=== PATIENT | female | born 1985 | race Caucasian/White ===

== ENCOUNTER 2024-09-14 09:14 | Outpatient (RCR) | payer BC, SELFPAY | END 2024-09-14 23:59 | disposition home or self-care (01) | LOC: RPT 09:14 | PROVIDERS: ATTENDING PHYSICIAN Nurse Practitioner; FAMILY PHYSICIAN Nurse Practitioner Adult Health | DX: M62.89 Other specified disorders of muscle (principal); R10.2 Pelvic and perineal pain; Z73.6 Limitation of activities due to disability; R27.8 Other lack of coordination; M62.81 Muscle weakness (generalized) | CPT/HCPCS: 97140; 97162; 97530 ==

== ENCOUNTER 2024-10-12 14:24 | Outpatient (RCR) | payer BC, SELFPAY | END 2024-10-12 23:59 | disposition home or self-care (01) | LOC: RPT 14:24 | PROVIDERS: FAMILY PHYSICIAN Nurse Practitioner Adult Health | DX: M62.89 Other specified disorders of muscle (principal); R10.2 Pelvic and perineal pain; Z73.6 Limitation of activities due to disability; R27.8 Other lack of coordination; M62.81 Muscle weakness (generalized) | CPT/HCPCS: 97140; 97530 ==

== ENCOUNTER 2024-11-08 13:12 | Outpatient (RCR) | payer BC, SELFPAY | END 2024-11-08 23:59 | disposition home or self-care (01) | LOC: RPT 13:12 | PROVIDERS: FAMILY PHYSICIAN Nurse Practitioner Adult Health | DX: M62.89 Other specified disorders of muscle (principal); R10.2 Pelvic and perineal pain; Z73.6 Limitation of activities due to disability; R27.8 Other lack of coordination; M62.81 Muscle weakness (generalized) | CPT/HCPCS: 97140; 97530 ==

== ENCOUNTER 2024-12-14 13:27 | Outpatient (RCR) | payer BC, SELFPAY | END 2024-12-14 23:59 | disposition home or self-care (01) | LOC: RPT 13:27 | PROVIDERS: ATTENDING PHYSICIAN Nurse Practitioner; FAMILY PHYSICIAN Nurse Practitioner Adult Health | DX: M62.89 Other specified disorders of muscle (principal); R10.2 Pelvic and perineal pain; Z73.6 Limitation of activities due to disability; Z96.642 Presence of left artificial hip joint; R27.8 Other lack of coordination; M62.81 Muscle weakness (generalized) | CPT/HCPCS: 97140; 97530 ==

== ENCOUNTER 2024-12-24 14:10 | Outpatient (RCR) | payer BC, SELFPAY | END 2024-12-24 23:59 | disposition home or self-care (01) | LOC: RPT 14:10 | PROVIDERS: ATTENDING PHYSICIAN Nurse Practitioner; FAMILY PHYSICIAN Nurse Practitioner Adult Health | DX: M62.89 Other specified disorders of muscle (principal); R10.2 Pelvic and perineal pain; Z73.6 Limitation of activities due to disability; R27.8 Other lack of coordination; Z96.642 Presence of left artificial hip joint; M25.551 Pain in right hip; M62.81 Muscle weakness (generalized) | CPT/HCPCS: 97530 ==

== ENCOUNTER 2025-02-08 13:46 | Outpatient (RCR) | payer BC, SELFPAY | END 2025-02-08 23:59 | disposition home or self-care (01) | LOC: RPT 13:46 | PROVIDERS: ATTENDING PHYSICIAN Nurse Practitioner; FAMILY PHYSICIAN Nurse Practitioner Adult Health | DX: M62.89 Other specified disorders of muscle (principal); R10.2 Pelvic and perineal pain; Z73.6 Limitation of activities due to disability; R27.8 Other lack of coordination; M62.81 Muscle weakness (generalized); M25.551 Pain in right hip; Z96.642 Presence of left artificial hip joint | CPT/HCPCS: 97014; 97140; 97530 ==

== ENCOUNTER 2025-03-14 14:05 | Outpatient (RCR) | payer BC, SELFPAY | END 2025-03-14 23:59 | disposition home or self-care (01) | LOC: RPT 14:05 | PROVIDERS: ATTENDING PHYSICIAN Nurse Practitioner; FAMILY PHYSICIAN Nurse Practitioner Adult Health | DX: M62.89 Other specified disorders of muscle (principal); R10.2 Pelvic and perineal pain; Z73.6 Limitation of activities due to disability; R27.8 Other lack of coordination; M62.81 Muscle weakness (generalized); M25.551 Pain in right hip; Z96.642 Presence of left artificial hip joint | CPT/HCPCS: 97140; 97530 ==

== ENCOUNTER → 2025-03-15 13:24 | Outpatient (REF) | payer BC, SELFPAY | LOC: HWRAD 13:24 | PROVIDERS: ATTENDING PHYSICIAN Obstetrics & Gynecology; FAMILY PHYSICIAN Nurse Practitioner Adult Health | DX: N92.0 Excessive and frequent menstruation with regular cycle (principal) | CPT/HCPCS: 76830; 76856 ==

== ENCOUNTER 2025-04-26 13:05 | Outpatient (RCR) | payer BC, SELFPAY | END 2025-04-26 23:59 | disposition home or self-care (01) | LOC: RPT 13:05 | PROVIDERS: ATTENDING PHYSICIAN Nurse Practitioner; FAMILY PHYSICIAN Nurse Practitioner Adult Health | DX: M62.89 Other specified disorders of muscle (principal); R10.2 Pelvic and perineal pain; Z73.6 Limitation of activities due to disability; R27.8 Other lack of coordination; M62.81 Muscle weakness (generalized); M25.551 Pain in right hip; Z96.642 Presence of left artificial hip joint | CPT/HCPCS: 97140; 97530 ==